=== PATIENT | female | born 1970 | race Caucasian/White ===

== ENCOUNTER 2023-03-04 07:37 | Outpatient (CLI) | payer BC, SELFPAY ==
--- NOTE | ~2023-03-04 | MR_ITS ---
MRI of the left knee Clinical history: Soft tissue disorder, pain and swelling Technique: Coronal proton density and proton density-weighted images, sagittal proton-density and T2 fat-sat images, and axial proton-density fat-saturated images were acquired. Findings: Anterior and posterior cruciate ligaments are intact. Medial collateral ligament and the la teral collateral ligament complex are intact. Popliteus tendon is intact. There is horizontal/oblique tear of the posterior horn of the medial meniscus. No lateral meniscal te ar seen. There is moderate chondral thinning at the medial femoral condyle. Lateral compartment articular cart ilage is well preserved. There is patchy mild to moderate chondromalacia of the patella and femoral t rochlea. Extensor mechanism is intact. Small joint effusion present. No Camarena's cyst. Impression: Horizontal/oblique tear of the posterior horn of the medial meniscus. Moderate chondromalacia the medial femoral condyle. Mild chondromalacia of the patellofemoral compart ment overall, as detailed above. Small joint effusion. Reviewed, dictated and finalized at location . Impression: Horizontal/oblique tear of the posterior horn of the medial meniscus. Moderate chondromalacia the medial femoral condyle. Mild chondromalacia of the patellofemoral compartment overall, as detailed above. Small joint effusion.
== END 2023-03-04 07:38 | disposition home or self-care (01) ==
PROVIDERS: PCP Physician Assistant Medical; Visit Provider Physician Assistant Medical
DX: M79.89 Other specified soft tissue disorders (principal); M79.662 Pain in left lower leg; M25.462 Effusion, left knee; S83.242A Other tear of medial meniscus, current injury, left knee, initial encounter; X58.XXXA Exposure to other specified factors, initial encounter
CPT/HCPCS: 73721